=== PATIENT | female | born 1975 | race Caucasian/White ===

== ENCOUNTER 2019-07-19 14:07 | Emergency (ER) | payer SELFPAY ==
[~2019-07-19] VITALS: Ht 162.6 cm; Wt 90.0 kg
[2019-07-19] MEDS ORDERED: KETOROLAC 30MG/ML VIAL IM ONE (15:45)
[2019-07-19 16:01] VITALS: BP 123/93
== END 2019-07-19 16:26 | disposition home or self-care (01) ==
LOC: ER 15:05
DX: M79.18 Myalgia, other site (principal)
CPT/HCPCS: 96372; 99283; J1885

== ENCOUNTER 2019-09-21 10:06 | Emergency (ER) | payer SELFPAY ==
[~2019-09-21] VITALS: Ht 162.6 cm; Wt 82.0 kg
[2019-09-21] MEDS ORDERED: KETOROLAC 30MG/ML VIAL IM ONE (11:45)
[2019-09-21 13:25] VITALS: BP 120/80
== END 2019-09-21 13:26 | disposition home or self-care (01) ==
LOC: ER 10:06
DX: M06.9 Rheumatoid arthritis, unspecified (principal); R11.2 Nausea with vomiting, unspecified; R19.7 Diarrhea, unspecified; Z90.49 Acquired absence of other specified parts of digestive tract; Z90.710 Acquired absence of both cervix and uterus; Z87.19 Personal history of other diseases of the digestive system; Z90.89 Acquired absence of other organs
CPT/HCPCS: 81025; 96372; 99283; J1885

== ENCOUNTER 2020-12-20 05:46 | Emergency (ER) | payer MEDICAID ==
[~2020-12-20] VITALS: Ht 162.6 cm; Wt 86.0 kg
[2020-12-20] MEDS ORDERED: ONDANSETRON HCL 4MG/2ML INJ IV STA (06:13)
[2020-12-20] MEDS ORDERED: MORPHINE SULFATE 4 MG/ML CPJ (NOT FOR IM USE) IV STA (06:13)
[2020-12-20] MEDS ORDERED: SODIUM CHLORIDE 0.9% 1,000 ML IV ONE (06:15)
[2020-12-20 06:28] LABS: BASOPHILS % 0.7 % (0.0-2.0); EOSINOPHILS % 2.2 % (0.0-5.0); HEMATOCRIT. 42.5 % (36.0-48.0); HEMOGLOBIN. 14.1 g/dL (12.0-16.0); LYMPHOCYTES % 18.2 % (20.0-50.0); MEAN CORPUSCULAR VOLUME 81.3 fL (81.0-99.0); MEAN PLATELET VOLUME 7.7 fl (7.4-10.4); MONOCYTES % 7.2 % (2.0-8.0); NEUTROPHILS % 71.7 % (40.0-76.0); PLATELET 241 x1000/uL (130-400); RED BLOOD CELL COUNT 5.22 mill/uL (4.2-5.4); RED CELL DISTRIBUTION WIDTH 14.5 % (11.6-14.6)
[2020-12-20 06:39] LABS: CHLORIDE 105 mEq/L (98-107)
[2020-12-20 06:57] LABS: CLARITY URINE TURBID (CLEAR); COLOR URINE ORANGE (YELLOW); KETONES URINE NEGATIVE (NEGATIVE); LEUKOCYTE ESTERASE URINE 1+ (NEGATIVE); NITRITE URINE NEGATIVE (NEGATIVE); OCCULT BLOOD URINE 3+ (NEGATIVE); PROTEIN URINE 2+ (NEGATIVE); SPECIFIC GRAVITY URINE 1.034 (1.005-1.030)
[2020-12-20] MEDS ORDERED: IOHEXOL-300 100 ML BOTTLE ONE (07:19)
[2020-12-20] MEDS ORDERED: HYDR-4001 MT (09:26)
[2020-12-20] MEDS ORDERED: CEPH500C2 MT (09:27)
[2020-12-20] MEDS ORDERED: ONDA4TAB11 PO (09:29)
[2020-12-20 10:12] VITALS: BP 148/89
== END 2020-12-20 10:13 | disposition home or self-care (01) ==
LOC: ER 05:46
DX: N13.2 Hydronephrosis with renal and ureteral calculous obstruction (principal); N39.0 Urinary tract infection, site not specified
CPT/HCPCS: 36415; 74177; 80053; 81003; 83690; 85025; 93005; 96361; 96374; 96375; 99285; J2270; J2405; J7030; Q9967